=== PATIENT | female | born 1985 | race Caucasian/White ===

== ENCOUNTER 2017-05-21 10:07 | Emergency (ER) | payer BC, SELFPAY ==
[2017-05-21 10:30] VITALS: BP 149/90; PULSE 101; RESP 22; TEMP 36.8; O2SAT 98; BMI 29.0
--- NOTE | 2017-05-21 10:38 | HMH.EDUTC ---
[facility] [place]: Dental abscess Disposition: Home, Self-Care Condition on Discharge: Good Instructions: DI for Dental Pain Prescriptions: Amoxicillin/Potassium Clav [Augmentin 875-125 Tablet] 1 tab PO Q12H 10 Days #20 tab Ibuprofen [Ibuprofen 800mg Tab] 800 mg PO Q6HP PRN 10 Days #40 tab PRN Reason: Moderate Pain Lidocaine HCl [Lidocaine 2% viscous solution 15mL UDC] 15 ml MM Q4HP PRN 10 Days #60 udc PRN Reason: pain Referrals: Nigel Vargas MD [Primary Care Provider] - Time of Disposition: 10:45 Medical Decision Making - Medical Records Medical records reviewed: Yes: I reviewed the patient's medical records. Vital Signs: 05/21/17 10:30 Temperature 98.2 F Temperature Source Temporal Artery Scan Pulse Rate [Right Brachial] 101 H Respiratory Rate 22 Blood Pressure [Right Arm] 149/90 Blood Pressure Mean [Right Arm] 109 Blood Pressure Source [Right Arm] Automatic Cuff Blood Pressure Position [Right Arm] Sitting 02 Sat by Pulse Oximetry 98 Oxygen Delivery Method Room Air - Ronny Inquiry Pt receiving controlled substance: No [facility] [place] - General Stated complaint: DENTAL PAIN Time Seen by Provider: 05/21/17 10:38 Mode of Arrival: Ambulatory Source of Information: Patient Limitations: No Limitations Description of Symptoms (Recalled from Triage Doc. by RN): TOOTHACHE X2 DAYS HEENT Symptoms (Recalled from RN notes): Yes (TOOTHACHE) Resp Symptoms (Recalled from RN notes): No Skin Symptoms (Recalled from RN notes): No MS Symptoms (Recalled from RN notes): No Functional Status (Recalled from RN notes): N/A - History of Present Illness Provider Complaint: Pain in left lower jaw X 2 days, worse since 4 am. Has known dental caries and needs extensive dental work. No fever. No vomiting. Has had trouble finding dentist who accepts her insurance. Onset (ago): day(s) (2) Location: mouth Relieving factors: medication Exacerbating factors: none Associated symptoms: denies other symptoms Treatments prior to arrival: NSAID - Related Data Previous Rx's Medication Instructions Recorded Amoxicillin/Potassium Clav 1 tab PO Q12H 10 Days #20 tab 05/21/17 [Augmentin 875-125 Tablet] Ibuprofen [Ibuprofen 800mg Tab] 800 mg PO Q6HP PRN 10 Days #40 tab 05/21/17 Lidocaine HCl [Lidocaine 2% 15 ml MM Q4HP PRN 10 Days #60 udc 05/21/17 viscous solution 15mL UDC] Allergies Allergy/AdvReac Type Severity Reaction Status Date / Time ondansetron Allergy Unknown STATES Verified 05/21/17 10:30 [From ZOFRAN ( MAKES HER HYDROCHLORIDE)] SICK - Worker's Comp Is this a Worker's Comp case?: No [facility] History I have reviewed the patient's past medical history: Yes Medical History: Denies:: Cancer, Diabetes Mellitus Type 1, Diabetes Mellitus Type 2, MRSA Amputation: No Fractures: No - Social History Smoking Status: Current every day smoker Tobacco Type: cigarettes Alcohol Intake: never - Psychiatric History Expresses thoughts of harming self/others: None Suicide Plan Description: No Plan ROS Obtained: Yes All systems reviewed & no additional complaints - ENT Ears, Nose, Mouth, and Throat: Reports as per HPI, Reports dental pain Physical Exam - General General appearance: alert, in no apparent distress - Head Head exam: atraumatic, normocephalic, normal inspection - Eye Eye exam: Present: normal appearance, PERRL, EOMI - ENT ENT exam: Present: normal exam, normal oropharynx, mucous membranes moist, TM's normal bilaterally, normal external ear exam - Expanded ENT Exam Teeth exam: Present: dental caries, fractured tooth #, dental tenderness #, gingival swelling - Neck Neck exam: Present: normal inspection, full ROM, trachea midline. Absent: meningismus, lymphadenopathy - Chest Chest inspection: Present: normal inspection, symmetric chest wall rise. Absent: tenderness - Respiratory Respiratory exam: Present: normal lung sounds bilaterally. Absent: re
--- NOTE | 2017-05-21 10:41 | ED_ITS ---
[facility] [place] Disposition Clinical Impression: Dental abscess Disposition: Home, Self-Care Condition on Discharge: Good Instructions: DI for Dental Pain Prescriptions: Amoxicillin/Potassium Clav [Augmentin 875-125 Tablet] 1 tab PO Q12H 10 Days #20 tab Ibuprofen [Ibuprofen 800mg Tab] 800 mg PO Q6HP PRN 10 Days #40 tab PRN Reason: Moderate Pain Lidocaine HCl [Lidocaine 2% viscous solution 15mL UDC] 15 ml MM Q4HP PRN 10 Days #60 udc PRN Reason: pain Referrals: Nigel Vargas MD [Primary Care Provider] - Time of Disposition: 10:45 Medical Decision Making - Medical Records Medical records reviewed: Yes: I reviewed the patient's medical records. Vital Signs: 05/21/17 10:30 Temperature 98.2 F Temperature Source Temporal Artery Scan Pulse Rate [Right Brachial] 101 H Respiratory Rate 22 Blood Pressure [Right Arm] 149/90 Blood Pressure Mean [Right Arm] 109 Blood Pressure Source [Right Arm] Automatic Cuff Blood Pressure Position [Right Arm] Sitting 02 Sat by Pulse Oximetry 98 Oxygen Delivery Method Room Air - Ronny Inquiry Pt receiving controlled substance: No [facility] [place] HPI - General Stated complaint: DENTAL PAIN Time Seen by Provider: 05/21/17 10:38 Mode of Arrival: Ambulatory Source of Information: Patient Limitations: No Limitations Description of Symptoms (Recalled from Triage Doc. by RN): TOOTHACHE X2 DAYS HEENT Symptoms (Recalled from RN notes): Yes (TOOTHACHE) Resp Symptoms (Recalled from RN notes): No Skin Symptoms (Recalled from RN notes): No MS Symptoms (Recalled from RN notes): No Functional Status (Recalled from RN notes): N/A - History of Present Illness Provider Complaint: Pain in left lower jaw X 2 days, worse since 4 am. Has known dental caries and needs extensive dental work. No fever. No vomiting. Has had trouble finding dentist who accepts her insurance. Onset (ago): day(s) (2) Location: mouth Relieving factors: medication Exacerbating factors: none Associated symptoms: denies other symptoms Treatments prior to arrival: NSAID - Related Data Previous Rx's Medication Instructions Recorded Amoxicillin/Potassium Clav 1 tab PO Q12H 10 Days #20 tab 05/21/17 [Augmentin 875-125 Tablet] Ibuprofen [Ibuprofen 800mg Tab] 800 mg PO Q6HP PRN 10 Days #40 tab 05/21/17 Lidocaine HCl [Lidocaine 2% 15 ml MM Q4HP PRN 10 Days #60 udc 05/21/17 viscous solution 15mL UDC] Allergies Allergy/AdvReac Type Severity Reaction Status Date / Time ondansetron Allergy Unknown STATES Verified 05/21/17 10:30 [From ZOFRAN ( MAKES HER HYDROCHLORIDE)] SICK - Worker's Comp Is this a Worker's Comp case?: No [facility] History I have reviewed the patient's past medical history: Yes Medical History: Denies:: Cancer, Diabetes Mellitus Type 1, Diabetes Mellitus Type 2, MRSA Amputation: No Fractures: No - Social History Smoking Status: Current every day smoker Tobacco Type: cigarettes Alcohol Intake: never - Psychiatric History Expresses thoughts of harming self/others: None Suicide Plan Description: No Plan ROS Obtained: Yes All systems reviewed & no additional complaints - ENT Ears, Nose, Mouth, and Throat: Reports as per HPI, Reports dental pain Physical Exam - General General appearance: alert, in no apparent distress - Head Head ex
[2017-05-21 10:55] VITALS: BP 149/90; PULSE 101; RESP 22; TEMP 36.8; O2SAT 98
== END 2017-05-21 10:56 | disposition home or self-care (01) ==
PROVIDERS: Emergency Provider Physician Assistant; Family Provider Emergency Medicine; PCP Emergency Medicine
DX: K04.7 Periapical abscess without sinus (principal); K02.9 Dental caries, unspecified; F17.210 Nicotine dependence, cigarettes, uncomplicated; Z88.8 Allergy status to other drugs, medicaments and biological substances
CPT/HCPCS: 99202

== ENCOUNTER 2020-01-18 17:43 | Emergency (ER) | payer BC, SELFPAY ==
[2020-01-18 18:11] VITALS: BP 153/88; PULSE 59; RESP 18; TEMP 36.8; O2SAT 100; BMI 23.3
--- NOTE | 2020-01-18 19:07 | HMH.EDUTC ---
[facility] [place] Impression: Dental abscess, Pain, dental Disposition: Home, Self-Care Condition on Discharge: Good Instructions: Tooth Abscess, DI for Dental Pain Additional Instructions: You have to follow up with a dentist. Take the antibiotics and other medications as directed. Follow up with your primary care physician. GO TO THE ER FOR ANY WORSENING SYMPTOMS OR CONCERNS Prescriptions: Ibuprofen [Ibuprofen 600mg Tablet] 600 mg PO Q6HP PRN #30 tab PRN Reason: Mild Pain Transmission Status: Received by [facility] Amoxicillin/Potassium Clav [Augmentin 875-125 Tablet] 1 tab PO Q12H 10 Days #20 tab Transmission Status: Received by [facility] Referrals: Nigel Vargas MD [Primary Care Provider] - Time of Disposition: 19:11 Medical Decision Making - Medical Records Medical records reviewed: No: I reviewed the patient's medical records. - Ronny Inquiry Pt receiving controlled substance: No Vital Signs: 01/18/20 18:11 01/18/20 19:29 Temperature 98.2 F 98.2 F Temperature Source Oral Pulse Rate 59 L Pulse Rate [Right Brachial] 59 L Respiratory Rate 18 18 Blood Pressure 153/88 H Blood Pressure [Right Arm] 153/88 H Blood Pressure Mean [Right Arm] 109 Blood Pressure Source [Right Arm] Automatic Cuff Blood Pressure Position [Right Arm] Sitting 02 Sat by Pulse Oximetry 100 Oxygen Delivery Method Room Air Orders (Tests/Meds): ED MEDICATIONS Discontinued Medications Generic Name Dose Route Start Last Admin Trade Name Freq PRN Reason Stop Dose Admin Benzocaine/Butamben/Tetracaine HCl 1 gm 01/18/20 19:09 01/18/20 19:24 Tetracaine/Benzocaine/Butamben 56 Gm Bomoseen TP 01/18/20 19:10 1 gm ONCE ONE Administration Ceftriaxone Sodium 1 gm 01/18/20 19:07 01/18/20 19:24 Ceftriaxone 1gm Vial IM 01/18/20 19:08 1 gm ONCE ONE Administration Protocol Lidocaine HCl 0 ml 01/18/20 19:07 01/18/20 19:24 Lidocaine 1% 5ml Pf Vial IM 01/18/20 19:08 2.1 ml ONCE ONE Administration Lidocaine HCl 15 ml 01/18/20 19:09 01/18/20 19:24 Lidocaine 2% Viscous Smiley 15ml Udc PO 01/18/20 19:10 15 ml ONCE ONE Administration [facility] [place] - General Stated complaint: Dental pain Time Seen by Provider: 01/18/20 18:20 Mode of Arrival: Ambulatory Source of Information: Patient Limitations: No Limitations Description of Symptoms (Recalled from Triage Doc. by RN): PATIENT C/O TOOTH ABSCESS/SWELLING HEENT Symptoms (Recalled from RN notes): Yes Resp Symptoms (Recalled from RN notes): No Skin Symptoms (Recalled from RN notes): No MS Symptoms (Recalled from RN notes): No Functional Status (Recalled from RN notes): wnl - History of Present Illness Provider Complaint: She has multiple decayed teeth. She has been having pain and swelling of her lower from gums around the decayed teeth. - Related Data Home Medications Medication Instructions Recorded Confirmed buprenorphine 8 mg-naloxone 2 mg 1 tab SUBLINGUAL BID tab 03/13/18 01/18/20 sublingual tablet Previous Rx's Medication Instructions Recorded Amoxicillin/Potassium Clav 1 tab PO Q12H 10 Days #20 tab 01/18/20 [Augmentin 875-125 Tablet] Ibuprofen [Ibuprofen 600mg 600 mg PO Q6HP PRN #30 tab 01/18/20 Tablet] Allergies Allergy/AdvReac Type Severity Reaction Status Date / Time ondansetron Allergy Unknown STATES Verified 03/13/18 09:45 [From ZOFRAN ( MAKES HER HYDROCHLORIDE)] SICK - Worker's Comp Is this a Worker's Comp case?: No [facility] History - Hepatitis A Screen Drug use history?: No High risk sexual behaviors?: No History of sexually transmitted infection?: No Currently employed?: No Childcare worker?: No Do you have indoor plumbing?: Yes Do you have electricity?: Yes Attestation statement:: This patient has been screened for Hepatitis A risk factors. I have reviewed the patient's past medical history: Yes Medical History:
[2020-01-18 19:29] VITALS: BP 153/88; PULSE 59; RESP 18; TEMP 36.8; O2SAT 100
== END 2020-01-18 19:35 | disposition home or self-care (01) ==
PROVIDERS: Emergency Provider Nurse Practitioner Family; PCP Emergency Medicine
DX: K04.7 Periapical abscess without sinus (principal); F17.210 Nicotine dependence, cigarettes, uncomplicated
CPT/HCPCS: 96372; 99201

== ENCOUNTER 2020-05-15 16:34 | Emergency (ER) | payer BC, SELFPAY ==
[2020-05-15 17:00] VITALS: BP 140/97; PULSE 97; RESP 14; TEMP 36.3; O2SAT 98; BMI 26.1
--- NOTE | 2020-05-15 17:07 | HMH.EDUTC ---
[facility] [place] Disposition Clinical Impression: Exposure to COVID-19 virus Disposition: Home, Self-Care Condition on Discharge: Good Instructions: Preventing the Spread of Coronavirus Discharge Instructions Additional Instructions: You have been tested for COVID19. Please isolate yourself as if your test is positive until test results received. Referrals: Nigel Vargas MD [Primary Care Provider] - Time of Disposition: 17:09 Medical Decision Making - Ronny Inquiry Pt receiving controlled substance: No Orders (Tests/Meds): ORDERS Category Date Time Status Covid-19 Nasal PCR ([facility]) Routine Lab 05/15/20 16:41 Ordered [facility] [place] HPI - General Stated complaint: covid test Time Seen by Provider: 05/15/20 17:07 - History of Present Illness Provider Complaint: Cough, congestion, runny nose, sore throat, body aches X 5 days. Exposed to COVID 19 last week. No vomiting or diarrhea. Onset (ago): day(s) (5) Relieving factors: none Exacerbating factors: none Associated symptoms: denies other symptoms Treatments prior to arrival: none - Related Data Home Medications Medication Instructions Recorded Confirmed buprenorphine 8 mg-naloxone 2 mg 1 tab SUBLINGUAL BID tab 03/13/18 01/18/20 sublingual tablet Previous Rx's Medication Instructions Recorded Amoxicillin/Potassium Clav 1 tab PO Q12H 10 Days #20 tab 01/18/20 [Augmentin 875-125 Tablet] Ibuprofen [Ibuprofen 600mg 600 mg PO Q6HP PRN #30 tab 01/18/20 Tablet] Allergies Allergy/AdvReac Type Severity Reaction Status Date / Time ondansetron Allergy Unknown STATES Verified 03/13/18 09:45 [From ZOFRAN ( MAKES HER HYDROCHLORIDE)] SICK [facility] History - Hepatitis A Screen Attestation statement:: This patient has been screened for Hepatitis A risk factors. I have reviewed the patient's past medical history: Yes Medical History: Denies:: Cancer, Diabetes Mellitus Type 1, Diabetes Mellitus Type 2, MRSA Other Surgeries: Yes: Hysterectomy-Partial Amputation: No Fractures: No - Social History Smoking Status: Current every day smoker Tobacco Type: cigarettes # Packs/Day (cigarettes): 1 Alcohol Intake: never Substance Use Type: former substance user Occupational Status: other Family Hx:: Heart Attack, Stroke ROS Obtained: Yes All systems reviewed & no additional complaints - Constitutional Constitutional: Reports body ache, Reports chills, Reports fatigue, Reports malaise - ENT Ears, Nose, Mouth, and Throat: Reports nasal discharge, Reports sore throat - Respiratory Respiratory: Reports cough Physical Exam - General General appearance: alert, in no apparent distress - Head Head exam: normocephalic - Eye Eye exam: Present: PERRL - ENT ENT exam: Present: normal oropharynx - Chest Chest inspection: Present: normal inspection - Respiratory Respiratory exam: Present: normal lung sounds bilaterally - Cardiovascular Cardiovascular exam: Present: regular rate, normal rhythm - Neurological Exam Neurological exam: Present: alert, oriented X3 - Psychiatric Psychiatric exam: Present: normal affect, normal mood - Skin Skin exam: Present: warm, dry
[2020-05-15 17:26] VITALS: BP 140/97; PULSE 97; RESP 14; TEMP 36.3; O2SAT 98
--- NOTE | 2020-05-16 09:46 | PC.NURSE ---
ATTEMPTED TO CALL PT ABOUT COVID TEST RESULTS, NO ANSWER. WILL TRY AGAIN LATER
--- NOTE | 2020-05-16 09:55 | PC.NURSE ---
PT NOTIFIED OF POSITIVE COVID RESULTS
== END 2020-05-15 17:30 | disposition home or self-care (01) ==
PROVIDERS: Emergency Provider Physician Assistant; PCP Emergency Medicine
DX: U07.1 COVID-19 (principal); F17.210 Nicotine dependence, cigarettes, uncomplicated
CPT/HCPCS: 99202; G0463; U0003

== ENCOUNTER → 2021-04-21 13:56 | Outpatient (CLI) | payer BC, SELFPAY | PROVIDERS: Visit Provider Nurse Practitioner | DX: Z20.822 Contact with and (suspected) exposure to COVID-19 (principal) | CPT/HCPCS: C9803; U0003; U0005 ==

== ENCOUNTER → 2021-05-06 16:48 | Outpatient (CLI) | payer BC, SELFPAY | PROVIDERS: Visit Provider Nurse Practitioner | DX: Z20.822 Contact with and (suspected) exposure to COVID-19 (principal) | CPT/HCPCS: C9803; U0003; U0005 ==

== ENCOUNTER 2021-08-17 15:03 | Emergency (ER) | payer BC, SELFPAY ==
[2021-08-17 15:12] VITALS: BP 114/80; PULSE 107; RESP 18; O2SAT 99; BMI 20.3
--- NOTE | 2021-08-17 15:20 | HMH.EDGENADL ---
ED Disposition Clinical Impression: Bacteriuria Low back pain Qualifiers: Chronicity: acute Back pain laterality: bilateral Sciatica presence: without sciatica Qualified Code(s): M54.50 - Low back pain, unspecified Disposition: Home, Self-Care Condition on Discharge: Good Instructions: DI for Low Back Pain, DI for Urinary Tract Infection (UTI) Additional Instructions: follow up PCP as needed, return here for worse Prescriptions: Sulfamethoxazole/Trimethoprim [Bactrim DS tablet] 1 each PO BID #14 tab Transmission Status: Received by [facility] Cyclobenzaprine HCl [Cyclobenzaprine 5mg Tab*] 5 mg PO TIDP PRN #15 tab PRN Reason: Moderate To Severe Pain Transmission Status: Received by [facility] Referrals: Nigel Vargas MD [Primary Care Provider] - - Critical Care Critical Care Time: No Attestation: On , the high probability of a clinically significant, sudden or life threatening deterioration of the following system(s) required my full and direct attention, intervention and personal management. The time I documented below is in addition to time spent performing reported procedures but includes the following listed in this critical care notation. Medical Decision Making - Medical Records Medical records reviewed: Yes: I reviewed the patient's medical records. - Ronny Inquiry Pt receiving controlled substance: No Vital Signs: 08/17/21 15:12 08/17/21 16:30 Temperature 98.2 F Pulse Rate 74 Pulse Rate [Radial] 107 H Respiratory Rate 18 20 Blood Pressure 117/82 Blood Pressure [Right Arm] 114/80 Blood Pressure Mean [Right Arm] 91 02 Sat by Pulse Oximetry 99 - Lab Data Lab Results 08/17/21 15:20: Urine Color Yellow, Urine Appearance Cloudy, Urine pH 5.0, Ur Specific Honeydew >= 1.030, Urine Protein Trace, Urine Glucose (UA) Negative, Urine Ketones Trace, Urine Blood Negative, Urine Nitrate Negative, Urine Bilirubin 1+ A, Urine Urobilinogen 1.0, Ur Leukocyte Esterase Negative, Urine RBC None, Urine WBC None, Ur Squamous Epith Cells 5-10, Urine Bacteria 1+, Urine Mucus 3+ 08/17/21 15:20: WBC 7.2, RBC 5.07, Hgb 15.8, Hct 47.5 H, MCV 93.7, MCH 31.2, MCHC 33.3, RDW 13.2, Plt Count 267, MPV 8.8, Neut % (Auto) 88.6 H, Lymph % (Auto) 7.4 L, [place] % (Auto) 2.5, Eos % (Auto) 0.6, Baso % (Auto) 0.9, Neut # (Auto) 6.4, Lymph # (Auto) 0.5 L, [place] # (Auto) 0.2, Eos # (Auto) 0.0, Baso # (Auto) 0.1, Total Counted 100, Neutrophils % (Manual) 90 H, Band Neutrophils % 1.0, Lymphocytes % (Manual) 7 L, Monocytes % (Manual) 2, Platelet Estimate Normal, RBC Morphology Normal 08/17/21 15:20: Sodium 135 L, Potassium 4.4, Chloride 104, Carbon Dioxide 23, Anion Gap 12.4, BUN 14, Creatinine 0.70, Estimated Creat Clear 104, Estimated GFR 95, Est GFR ( Amer) 115, Glucose 125 H, Calcium 9.2, Total Bilirubin 0.7, AST 35, ALT 27, Alkaline Phosphatase 68, Total Protein 7.9, Albumin 4.6, Globulin 3.3 H, Albumin/Globulin Ratio 1.4, Amylase 61, Lipase 50 08/17/21 15:20: Serum HCG, Qual Negative Result diagrams: 08/17/21 15:20 08/17/21 15:20 Orders (Tests/Meds): ED MEDICATIONS Discontinued Medications Generic Name Dose Route Start Last Admin Trade Name Freq PRN Reason Stop Dose Admin Sodium Chloride 1,000 mls @ 999 mls/hr 08/17/21 15:30 08/17/21 15:33 Sod Chlor 0.9% 1000ml Bag IV 08/17/21 16:30 999 mls/hr .Q1H1M DARIUS Administration Ketorolac Tromethamine 15 mg 08/17/21 15:19 08/17/21 15:33 Ketorolac 30mg/Ml Vial IV 08/17/21 15:20 15 mg ONCE ONE Administration - Reevaluation(s) Time: 16:21 (reeval, vss, appears well, feels better, ok with plan to rx and f/u prn) General Adult HPI - General Chief complaint: Abdominal Pain Stated complaint: back pain, nausea, unable to urinate Time Seen by Provider: 08/17/21 15:03 Mode of Arrival: Ambulatory Limitations: No Limitations Description of Symptoms (Recalled from ER Triage Doc. by RN): Pt c/o edel flank pain and difficulty urinat
[2021-08-17 15:34] LABS: Microscopic, Urine URINE MICROSCOPIC (MICROSCOPIC)
[2021-08-17 15:40] LABS: Basophils # 0.1 K/mm3 (0-0.2); Basophils % 0.9 % (0.1-2.0); Chloride 104 mmol/L (98-107); Eosinophils % 0.6 % (0.1-12.0); Hematocrit 47.5 % (37.0-47.0); Hemoglobin 15.8 g/dL (12.2-16.2); Lymphocytes # 0.5 K/mm3 (0.7-4.5); Lymphocytes % 7.4 % (10-50); Mean Corpuscular HGB Conc 33.3 g/dL (31.8-35.4); Mean Corpuscular Hemoglobin 31.2 pg (27.0-31.2); Mean Corpuscular Volume 93.7 fl (81-99); Mean Platelet Volume 8.8 fl (7.4-10.4); Monocytes # 0.2 K/mm3 (0.1-1.0); Monocytes % 2.5 % (1.7-9.3); Neutrophils # 6.4 K/mm3 (1.8-7.8); Neutrophils % 88.6 % (37.0-80.0); Platelet Count 267 K/mm3 (142-424); Potassium 4.4 mmoL/L (3.5-5.1); Red Blood Count 5.07 M/mm3 (4.20-5.40); Red Cell Distribution Width 13.2 % (11.5-17.5); Sodium 135 mmol/L (136-145); White Blood Count 7.2 K/mm3 (4.8-10.8)
[2021-08-17 15:42] LABS: Amylase 61 U/L (30-110)
[2021-08-17 15:43] LABS: Alanine Aminotransferase 27 U/L (12-78); Albumin Level 4.6 g/dl (3.5-5.0); Albumin/Globulin Ratio 1.4 (1.1-1.8); Alkaline Phosphatase 68 U/L (38-126); Anion Gap 12.4 mEq/L (5-15); Appearance,Urine CLOUDY (Clear); Aspartate Amino Transferase 35 U/L (14-36); Bilirubin,Total 0.7 mg/dl (0.2-1.3); Blood Urea Nitrogen 14 mg/dl (7-17); Blood, Urine Negative (Negative); Calcium 9.2 mg/dl (8.4-10.2); Carbon Dioxide 23 mmol/L (22.0-30.0); Color,Urine YELLOW (Yellow); Creatinine Clearance Estimated 104 mL/min (50-200); Estimated Glomerular Filt Rate 95 ml/min (>60); GFR (African American) 115 ML/MIN (>60); Globulin 3.3 g/dL (1.3-3.2); Glucose 125 mg/dl (74-100); Glucose,Urine (UA) Negative (Negative); Ketones,Urine TRACE (Negative); Leukocyte Esterase,Urine Negative (Negative); Lipase 50 U/L (23-300); Nitrate,Urine Negative (Negative); Protein,Urine TRACE (Negative); Specific Gravity, Urine >= 1.030 (1.005-1.030); Total Protein,Serum 7.9 g/dl (6.3-8.2)
[2021-08-17 15:48] LABS: MANUAL DIFFERENTIAL MANUAL DIFFERENTIAL (MANUAL DIFF)
[2021-08-17 15:57] LABS: HCG Qualitative, Serum Negative (Negative)
[2021-08-17 16:11] LABS: Bilirubin,Urine 1+ (Negative)
[2021-08-17 16:12] LABS: Bacteria,Urine 1+ /lpf; Mucus,Urine 3+ /lpf
[2021-08-17 16:30] VITALS: BP 117/82; PULSE 74; RESP 20; TEMP 36.8; O2SAT 100
[2021-08-17 16:41] LABS: Lymphocytes % 7 % (10-50); Monocytes % 2 % (2-9); Neutrophils % 90 % (42-76); Platelet Estimate Normal; RBC Morphology Normal; Total Cells Counted 100
== END 2021-08-17 16:30 | disposition home or self-care (01) ==
PROVIDERS: Emergency Provider Emergency Medicine; PCP Emergency Medicine
DX: R82.71 Bacteriuria
CPT/HCPCS: 80053; 81001; 82150; 83690; 84703; 85007; 85025; 96365; 96375; 99284

== ENCOUNTER 2021-09-13 04:58 | Emergency (ER) | payer BC, SELFPAY ==
[2021-09-13] VITALS (13 sets, daily range): BP systolic 103–173; BP diastolic 45–99; PULSE 60–89; RESP 16–18; TEMP 36.8; O2SAT 96–100; BMI 26.6
--- NOTE | 2021-09-13 05:09 | CT_ITS ---
PROCEDURE INFORMATION: Exam: CT Abdomen And Pelvis Without Contrast Exam date and time: 09/13/2021 5:23 AM Age: 36 years old Clinical indication: Abdominal pain; Flank; Right; Prior surgery; Surgery date: 6+ months; Surgery type: RT ovary removed, tubal ligation; Additional info: Abd pain RT flank TECHNIQUE: Imaging protocol: Computed tomography of the abdomen and pelvis without contrast. Radiation optimization: All CT scans at this facility use at least one of these dose optimization techniques: automated exposure control; mA and/or kV adjustment per patient size (includes targeted exams where dose is matched to clinical indication); or iterative reconstruction. COMPARISON: [id number]/[id number] CT ABD PELVIS W/O CONTRAST 03/23/2016 7:09 PM FINDINGS: Lungs: [id number] emphysematous changes in the lung bases. Moderate sized bulla in the RML. Liver: Small calcified hepatic granuloma. Gallbladder and bile ducts: Cholelithiasis with mild nonspecific gallbladder distention. Pancreas: Normal. No ductal dilation. Spleen: Calcified splenic granulomata. Adrenal glands: Normal. No mass. Kidneys and ureters: Punctate nonobstructive calculus in the right kidney. No hydronephrosis. Stomach and bowel: Mild nonspecific fecalization of the terminal ileum. No evidence of obstruction. Appendix: No evidence of appendicitis. Intraperitoneal space: Trace free pelvic fluid, which is most often physiologic in this age group. Vasculature: Unremarkable. No abdominal aortic aneurysm. Lymph nodes: Unremarkable. No enlarged lymph nodes. Urinary bladder: Unremarkable as visualized. Reproductive: Unremarkable as visualized. Bones/joints: Unremarkable. No acute fracture. Soft tissues: Tiny fat containing umbilical hernia. IMPRESSION: 1. Cholelithiasis with mild nonspecific gallbladder distention. 2. Punctate nonobstructive calculus in the right kidney. No hydronephrosis. 3. Other findings as detailed in the body of the report.
[2021-09-13 05:14] LABS: Microscopic, Urine URINE MICROSCOPIC (MICROSCOPIC)
[2021-09-13 05:16] LABS: Appearance,Urine CLEAR (Clear); Bilirubin,Urine Negative (Negative); Blood, Urine Negative (Negative); Color,Urine YELLOW (Yellow); Glucose,Urine (UA) Negative (Negative); Ketones,Urine Negative (Negative); Leukocyte Esterase,Urine Negative (Negative); Nitrate,Urine Negative (Negative); Protein,Urine Negative (Negative); Specific Gravity, Urine >= 1.030 (1.005-1.030); Urobilinogen,Urine 0.2 EU/dl (0.2)
[2021-09-13 05:18] LABS: Urine Pregnancy, HCG Qual. Negative (Negative)
[2021-09-13 05:47] LABS: Basophils # 0.2 K/mm3 (0-0.2); Basophils % 2.4 % (0.1-2.0); Eosinophils # 0.2 K/mm3 (0.0-0.4); Hematocrit 43.9 % (37.0-47.0); Hemoglobin 14.6 g/dL (12.2-16.2); Lymphocytes # 2.4 K/mm3 (0.7-4.5); Lymphocytes % 39.3 % (10-50); Mean Corpuscular HGB Conc 33.3 g/dL (31.8-35.4); Mean Corpuscular Volume 93.2 fl (81-99); Mean Platelet Volume 9.2 fl (7.4-10.4); Monocytes # 0.3 K/mm3 (0.1-1.0); Monocytes % 5.3 % (1.7-9.3); Neutrophils % 49.9 % (37.0-80.0); Platelet Count 252 K/mm3 (142-424); Red Blood Count 4.71 M/mm3 (4.20-5.40); Red Cell Distribution Width 13.4 % (11.5-17.5)
[2021-09-13 05:59] LABS: Alanine Aminotransferase 32 U/L (12-78); Albumin Level 4.4 g/dl (3.5-5.0); Albumin/Globulin Ratio 1.3 (1.1-1.8); Alkaline Phosphatase 71 U/L (38-126); Amylase 62 U/L (30-110); Anion Gap 9.8 mEq/L (5-15); Aspartate Amino Transferase 34 U/L (14-36); Blood Urea Nitrogen 12 mg/dl (7-17); Calcium 9.1 mg/dl (8.4-10.2); Carbon Dioxide 26 mmol/L (22.0-30.0); Chloride 105 mmol/L (98-107); Creatinine Clearance Estimated 150 mL/min (50-200); Estimated Glomerular Filt Rate 114 ml/min (>60); GFR (African American) 138 ML/MIN (>60); Globulin 3.4 g/dL (1.3-3.2); Glucose 102 mg/dl (74-100); Lipase 85 U/L (23-300); Potassium 3.8 mmoL/L (3.5-5.1); Sodium 137 mmol/L (136-145); Total Protein,Serum 7.8 g/dl (6.3-8.2)
[2021-09-13 06:04] LABS: Bilirubin,Total < 0.1 mg/dl (0.2-1.3); C-Reactive Protein 2.2 mg/L (0-4)
[2021-09-13 06:14] LABS: Erythrocyte Sedimentation Rate 12 mm/hr (0-20)
[2021-09-13 06:18] LABS: Procalcitonin 0.035 ng/mL (0.0-2.0)
--- NOTE | 2021-09-13 06:56 | HMH.EDNVD ---
ED Disposition Clinical Impression: Cholelithiasis Qualifiers: Cholelithiasis location: gallbladder Cholecystitis presence: with cholecystitis Cholecystitis acuity: acute Biliary obstruction: without biliary obstruction Qualified Code(s): K80.00 - Calculus of gallbladder with acute cholecystitis without obstruction Disposition: Admitted as Observation Condition on Discharge: Fair - Critical Care Critical Care Time: No Attestation: On 09/13/21, the high probability of a clinically significant, sudden or life threatening deterioration of the following system(s) required my full and direct attention, intervention and personal management. The time I documented below is in addition to time spent performing reported procedures but includes the following listed in this critical care notation. Medical Decision Making - Medical Records Medical records reviewed: Yes: I reviewed the patient's medical records. - Ronny Inquiry Pt receiving controlled substance: No Vital Signs: 09/13/21 04:59 Temperature 98.2 F Temperature Source Oral Pulse Rate [Apical] 89 Respiratory Rate 18 Blood Pressure [Right Arm] 173/99 H Blood Pressure Mean [Right Arm] 123 Blood Pressure Source [Right Arm] Automatic Cuff Blood Pressure Position [Right Arm] Sitting 02 Sat by Pulse Oximetry 99 Oxygen Delivery Method Room Air - Lab Data Lab results reviewed: Yes: I reviewed the patient's lab results. Lab Results 09/13/21 05:05: Urine Color Yellow, Urine Appearance Clear, Urine pH 6.0, Ur Specific [place] >= 1.030, Urine Protein Negative, Urine Glucose (UA) Negative, Urine Ketones Negative, Urine Blood Negative, Urine Nitrate Negative, Urine Bilirubin Negative, Urine Urobilinogen 0.2, Ur Leukocyte Esterase Negative, Ur Squamous Epith Cells 5-10 09/13/21 05:05: Urine HCG, Qual Negative 09/13/21 05:19: WBC 6.0, RBC 4.71, Hgb 14.6, Hct 43.9, MCV 93.2, MCH 31.0, MCHC 33.3, RDW 13.4, Plt Count 252, MPV 9.2, Neut % (Auto) 49.9, Lymph % (Auto) 39.3, [place] % (Auto) 5.3, Eos % (Auto) 3.0, Baso % (Auto) 2.4 H, Neut # (Auto) 3.0, Lymph # (Auto) 2.4, [place] # (Auto) 0.3, Eos # (Auto) 0.2, Baso # (Auto) 0.2 09/13/21 05:19: Amylase 62 09/13/21 05:19: Sodium 137, Potassium 3.8, Chloride 105, Carbon Dioxide 26, Anion Gap 9.8, BUN 12, Creatinine 0.60, Estimated Creat Clear 150, Estimated GFR 114, Est GFR ( Amer) 138, Glucose 102 H, Calcium 9.1, Total Bilirubin < 0.1 L, AST 34, ALT 32, Alkaline Phosphatase 71, C-Reactive Protein 2.2, Total Protein 7.8, Albumin 4.4, Globulin 3.4 H, Albumin/Globulin Ratio 1.3, Lipase 85, Procalcitonin 0.035 09/13/21 05:19: ESR 12 Result diagrams: 09/13/21 05:19 09/13/21 05:19 Orders (Tests/Meds): ED MEDICATIONS Discontinued Medications Generic Name Dose Route Start Last Admin Trade Name Freq PRN Reason Stop Dose Admin Hydromorphone HCl 1 mg 09/13/21 07:04 09/13/21 07:06 Hydromorphone 2mg/Ml Syringe IV 09/13/21 07:05 1 mg ONCE ONE Administration Sodium Chloride 1,000 mls @ 999 mls/hr 09/13/21 05:15 09/13/21 05:13 Sod Chlor 0.9% 1000ml Bag IV 09/13/21 06:15 999 mls/hr .Q1H1M DARIUS Administration Ketorolac Tromethamine 30 mg 09/13/21 05:10 09/13/21 05:13 Ketorolac 30mg/Ml Vial IV 09/13/21 05:11 30 mg ONCE ONE Administration Promethazine HCl 25 mg 09/13/21 07:05 09/13/21 07:07 Promethazine Hcl 25mg/Ml 1ml Vial IV 09/13/21 07:06 25 mg ONCE ONE Administration Sodium Chloride 25 ml 09/13/21 07:05 09/13/21 07:06 Sodium Chloride 0.9% 25ml Bag IV 09/13/21 07:06 25 ml ONCE ONE Administration ORDERS Category Date Time Status US gallbladder Stat Exams 09/13/21 07:12 Taken - CT Data CT Scan: Abdomen, Pelvis Time Received: 07:[address] Reviewed: Yes: I have viewed the radiologist's interpretation Preliminary Findings: Abnormal (see report ) Medical Decision Narrative: rt sided abd pain with tender rt abd and abn ct - showing gb disease and abn u/s with intracat
--- NOTE | 2021-09-13 07:12 | US_ITS ---
FINAL REPORT CLINICAL HISTORY: abdominal pain; back pain; nausea FINDINGS: Sonographic images of the right upper quadrant were obtained. The pancreas is partially obscured.The liver has an unremarkable appearance. There are multiple gallstones within the gallbladder. There is mild gallbladder wall thickening. There is no evidence of biliary ductal dilatation.The common duct measures 5 mm. Limited images of the right kidney are unremarkable. IMPRESSION: Multiple gallstones with mild gallbladder wall thickening, cholecystitis not excluded. If indicated, nuclear medicine hepatic biliary scan could be helpful. Reviewed, Interpreted and Dictated by Yohannes Torre III, MD Transcribed by Ami Rose Authenticated and [facility]
--- NOTE | 2021-09-13 07:36 | PC.NURSE ---
Pt resting in bed at this time.
--- NOTE | 2021-09-13 07:45 | PC.NURSE ---
Pt to rad for ultrasound
--- NOTE | 2021-09-13 08:12 | PC.NURSE ---
Pt returned to room
[2021-09-13 12:31] LABS: Coronavirus 19, PCR Not Detected (NotDetected); Influenza A, PCR Not Detected (NotDetected); Influenza B, PCR Not Detected (NotDetected)
--- NOTE | 2021-09-13 13:31 | HMH.HP ---
*Admission Date: 09/13/21 *Chief complaint: abd pain *History of present illness: this patient presented to the ed with progressive rt upper abd pain to back and was noted to have abn ct of abd and pelvis and abn gb u/s and was requiring pv pain meds and was still in pain and was admitted for treatment and surg eval [facility] History I have reviewed the patient's past medical history: Yes Medical History: Denies:: Cancer, Diabetes Mellitus Type 1, Diabetes Mellitus Type 2, MRSA *Have you ever received a pneumonia vaccine?: No *Have you received a flu vaccine this season?: No Other Surgeries: Yes: Hysterectomy-Partial Amputation: No Fractures: No - *Social History Smoking Status: Current every day smoker Tobacco Type: cigarettes # Packs/Day (cigarettes): 1 Alcohol Intake: never Substance Use Type: former substance user *Occupational Status:: other *Travel in the last 8 weeks: None Family Hx:: Heart Attack, Stroke Review of Systems - Review of Systems Review of systems:: pertinent systems reviewed and negative unless documented below - Constitutional Denies fever(s) - Eyes Denies change in vision - ENT Denies sore throat - *Cardiovascular Denies chest pain at rest - *Respiratory Denies cough - *Gastrointestinal Reports abdominal pain, Reports nausea, Denies vomiting - *Genitourinary Denies difficulty urinating - *Musculoskeletal Denies joint pain, Denies joint swelling - Integumentary/Breasts Denies rash - *Neurologic Denies localized weakness, Denies seizure-like activity - Psychiatric Denies paranoia Meds Home Medications Medication Instructions Recorded Confirmed Type No Known Home Medications 09/13/21 09/13/21 History Allergies Allergy/AdvReac Type Severity Reaction Status Date / Time ondansetron Allergy Unknown STATES Verified 03/13/18 09:45 [From ZOFRAN ( MAKES HER HYDROCHLORIDE)] SICK Exam Vital signs and Labs for Last 24 Hours: Temp Pulse Resp BP Pulse Ox 98.2 F 61 18 108/60 L 98 09/13/21 04:59 09/13/21 10:01 09/13/21 04:59 09/13/21 10:01 09/13/21 10:01 Laboratory Results - last 24 hr 09/13/21 05:05: Urine Color Yellow, Urine Appearance Clear, Urine pH 6.0, Ur Specific [place] >= 1.030, Urine Protein Negative, Urine Glucose (UA) Negative, Urine Ketones Negative, Urine Blood Negative, Urine Nitrate Negative, Urine Bilirubin Negative, Urine Urobilinogen 0.2, Ur Leukocyte Esterase Negative, Ur Squamous Epith Cells 5-10 09/13/21 05:05: Urine HCG, Qual Negative 09/13/21 05:19: WBC 6.0, RBC 4.71, Hgb 14.6, Hct 43.9, MCV 93.2, MCH 31.0, MCHC 33.3, RDW 13.4, Plt Count 252, MPV 9.2, Neut % (Auto) 49.9, Lymph % (Auto) 39.3, [place] % (Auto) 5.3, Eos % (Auto) 3.0, Baso % (Auto) 2.4 H, Neut # (Auto) 3.0, Lymph # (Auto) 2.4, [place] # (Auto) 0.3, Eos # (Auto) 0.2, Baso # (Auto) 0.2 09/13/21 05:19: Amylase 62 09/13/21 05:19: Sodium 137, Potassium 3.8, Chloride 105, Carbon Dioxide 26, Anion Gap 9.8, BUN 12, Creatinine 0.60, Estimated Creat Clear 150, Estimated GFR 114, Est GFR ( Amer) 138, Glucose 102 H, Calcium 9.1, Total Bilirubin < 0.1 L, AST 34, ALT 32, Alkaline Phosphatase 71, C-Reactive Protein 2.2, Total Protein 7.8, Albumin 4.4, Globulin 3.4 H, Albumin/Globulin Ratio 1.3, Lipase 85, Procalcitonin 0.035 09/13/21 05:19: ESR 12 09/13/21 12:25: SARS-CoV-2 (PCR) Not detected, Influenza A Untype (PCR) Not detected, Influenza Type B (PCR) Not detected I & O for Last 24 hours: Intake & Output 09/11/21 09/12/21 09/13/21 09/14/21 11:59 11:59 11:59 11:59 Weight 160 lb - Constitutional no acute distress, cooperative - *Routine HEENT Exam Head: Present: normocephalic Eye: Present: EOMI, PERRL. Absent: conjunctival icterus ENT: Present: mucous membranes dry - *Routine Neck Exam Absent: JVD - *Routine Respiratory Exam Present: CTA bilaterally - *Routine Cardiovascular Exam Present: RRR. Absent: murmur - *Routine Abdominal Exam Present
--- NOTE | 2021-09-13 14:52 | PC.NURSE ---
pt left ER ama
--- NOTE | 2021-09-13 15:13 | PC.NURSE ---
no bed available for pt upstairs, pt states that she does not want to wait until she has a bed upstairs. Pt educated on home care for the gallbladder and if symptoms get worse to return to the ER pt verbalized understanding
== END 2021-09-13 15:19 | disposition home or self-care (01) ==
LOC: ER 05:14 → 2ND 08:54
PROVIDERS: Emergency Provider Emergency Medicine; PCP Emergency Medicine
DX: K80.00 Calculus of gallbladder with acute cholecystitis without obstruction (principal); M54.9 Dorsalgia, unspecified; R10.31 Right lower quadrant pain; R11.0 Nausea; F17.210 Nicotine dependence, cigarettes, uncomplicated; Z20.822 Contact with and (suspected) exposure to COVID-19; Z88.8 Allergy status to other drugs, medicaments and biological substances; Z82.49 Family history of ischemic heart disease and other diseases of the circulatory system
CPT/HCPCS: 74176; 76705; 80053; 81001; 81025; 82150; 83690; 84145; 85025; 85651; 86140; 96361; 96374; 96375; 96376; 99285; C9803; U0003; U0005

== ENCOUNTER → 2021-09-21 08:36 | Outpatient (CLI) | payer BC, SELFPAY | PROVIDERS: PCP Emergency Medicine; Visit Provider Surgery | DX: Z01.812 Encounter for preprocedural laboratory examination (principal); Z20.822 Contact with and (suspected) exposure to COVID-19; K80.10 Calculus of gallbladder with chronic cholecystitis without obstruction | CPT/HCPCS: C9803; U0003; U0005 ==

== ENCOUNTER → 2021-09-23 10:23 | Day surgery (SDC) | payer BC, SELFPAY ==
[2021-09-22 14:14] VITALS: BMI 27.1
--- NOTE | 2021-09-23 11:30 | SUR.PREOP ---
PROCEDURE RESCHEDULED PER DR HAYWOOD. PT IN AGREEMENT WITH RESCHEDULING DUE TO SURGERY BEING DELAYED.
== END ==
PROVIDERS: PCP Emergency Medicine; Visit Provider Surgery
PROC: 0FT44ZZ Resection of Gallbladder, Percutaneous Endoscopic Approach (ICD-10-PCS; CPT 47562; principal; 2021-09-23 12:00)
DX: K80.10 Calculus of gallbladder with chronic cholecystitis without obstruction (principal)

== ENCOUNTER → 2021-09-30 11:43 | Outpatient (CLI) | payer BC, SELFPAY | PROVIDERS: PCP Emergency Medicine; Visit Provider Surgery | DX: Z01.812 Encounter for preprocedural laboratory examination (principal); Z20.822 Contact with and (suspected) exposure to COVID-19; K80.10 Calculus of gallbladder with chronic cholecystitis without obstruction | CPT/HCPCS: C9803; U0003; U0005 ==

== ENCOUNTER 2021-10-01 08:39 | Day surgery (SDC) | payer BC, SELFPAY ==
[2021-09-29 11:26] VITALS: BMI 27.4
[2021-10-01] VITALS (11 sets, daily range): BP systolic 98–148; BP diastolic 55–90; PULSE 63–80; RESP 16–18; TEMP 36.3–37.5; O2SAT 93–100
[2021-10-01 10:03] LABS: Urine Pregnancy, HCG Qual. Negative (Negative)
--- NOTE | 2021-10-01 10:17 | HMH.ANESCL ---
[facility] Anesthesia Checklist - Patient Identification Patient Identification: Arm Band - Structural Data Admitted From: Home Planned Operative Procedure/s: Lap. cholecystectomy Consent for Planned Operative Procedure(s) Verified: Yes - NPO Status Verified Time NPO: 00:00 - Additional verifications Anesthesia Reactions: No Hx Blood Transfusions: No Blood Transfusion Reaction: No - Airway Assessment C-Spine Mobility Assessed: Yes Dentition: Poor Dentition - Neurological Assessment Level of Consciousness: Awake Hx Seizures: No Numbness or tingling in extremities: No - Anesthesia Plan Anesthesia Risk discussed: Yes Anesthesia Plan: Verified ASA Class: I Anesthesia Type: General [facility] History I have reviewed the patient's past medical history: Yes Medical History: Denies:: Cancer, Diabetes Mellitus Type 1, Diabetes Mellitus Type 2, Internal Pacemaker, MRSA, Seizures *Have you ever received a pneumonia vaccine?: No *Have you received a flu vaccine this season?: No Other Medical History: Denies: Blood Transfusion Reaction Anesthesia experience/problems:: None Laterality Cases: Right: Lumpectomy Other Surgeries: Yes: Hysterectomy-Partial. No: Pacemaker Amputation: No Fractures: No - *Social History Last grade of school completed: High school graduate Smoking Status: Current every day smoker Tobacco Type: cigarettes # Packs/Day (cigarettes): 1 Alcohol Intake: never Substance Use Type: former substance user, painkillers, methamphetamine, prescription drug, other *Occupational Status:: unemployed Housing: house Household Members: family *Travel in the last 8 weeks: None Family Hx:: Heart Attack, Stroke
--- NOTE | 2021-10-01 12:03 | HMH.OPNOTE ---
Date of procedure: 10/01/21 Pre-op Diagnosis:: Chronic calculus cholecystitis Post-op Diagnosis:: Same Procedure performed:: Laparoscopic cholecystectomy Surgeon:: Sebastian Duran MD Anesthesia: GETShant Estimated blood loss (mL): 25 Operative findings:: Inflammatory lesions between gallbladder and liver margin Operative note:: After informed consent was obtained, the patient was taken to the operating room and placed in the supine position. General anesthesia was induced and the abdomen was prepped and draped in a sterile fashion. After infiltration with local anesthetic an infraumbilical incision was made. A Veress needle was placed in position. The abdomen was insufflated. A 5 mm optical trocar was placed in position. Under direct visualization, a 12 mm trocar was placed in the subxiphoid position and 2 additional 5 mm trocars were placed in the right upper quadrant. The gallbladder was elevated up and over the liver margin. The tissue around the cystic duct was carefully dissected. 3 clips were placed proximally and the duct was transected with harmonic antonietta. Harmonic antonietta were then utilized to dissect the gallbladder away from the liver margin with careful attention to the control of the cystic artery. The gallbladder was placed in a retrieval bag and removed through the subxiphoid trocar site. The right upper quadrant was thoroughly irrigated. No active bleeding or bile leak was noted. Fascia at the subxiphoid trocar site was reapproximated utilizing 0 Ethibond. The remaining trocars were removed. All wounds were irrigated and skin was closed with 4-0 Monocryl in a subcuticular fashion. Steri-Strips were applied. The patient's anesthetic agents were reversed and extubation was completed prior to transfer to recovery in stable condition. Condition: stable Disposition: PACU Specimens:: Gallbladder and contents Complications:: No immediate
--- NOTE | 2021-10-01 12:13 | P.PN_ITS ---
[facility] Anesthesia Record Part I Intake, IV Amount: 700 Estimated blood loss (mL): 10 Urine output (mL): 0 Blood Pressure: 121/73 SaO2: 93 Pulse Rate: 74 Respiratory Rate: 18 Temperature: 97.7 F Patient is:: Drowsy Stable to PACU at:: 12:10
--- NOTE | 2021-10-04 07:10 | HMH.ANESII ---
[facility] Anesthesia Record Part II Discharge Time: 12:40 Destination: Surgical Day Care (OP Surgery) PACU nurse assessment reviewed?: Yes Patient Condition:: Good Anesthesia Complications:: None Swallowing reflex intact?: Yes Cyanosis?: No Blood Pressure: 146/90 Pulse Rate: 77 Temperature: 97.3 F Mental Status: Alert & Oriented Pain level:: 0 Nausea and/or vomitting:: None Intake, IV Amount: 0
[2021-10-04 07:11] VITALS: BP 146/90; PULSE 77; TEMP 36.3
== END 2021-10-01 13:40 | disposition home or self-care (01) ==
LOC: OR 08:40
PROVIDERS: PCP Emergency Medicine; Visit Provider Surgery
PROC: 0FT44ZZ Resection of Gallbladder, Percutaneous Endoscopic Approach (ICD-10-PCS; CPT 47562; principal; 2021-10-01 10:15)
DX: K80.10 Calculus of gallbladder with chronic cholecystitis without obstruction (principal); Z72.0 Tobacco use
CPT/HCPCS: 47562; 81025; 96374; J2405; J2710

== ENCOUNTER 2021-11-11 12:27 | Emergency (ER) | payer BC, SELFPAY ==
--- NOTE | 2021-11-11 13:06 | HMH.EDUTC ---
[facility] Clinical Impression: Strep throat Disposition: Home, Self-Care Condition on Discharge: Good Instructions: Strep Throat, DI for Strep Throat Additional Instructions: Drink plenty of fluids. Take tylenol or ibuprofen for pain or fever. Take the medications as directed. Follow up with your regular doctor. GO TO THE ER FOR ANY WORSENING SYMPTOMS Throw your tooth brush away and get a new one. Prescriptions: Amoxicillin [Amoxicillin 875MG Tab] 875 mg PO Q12H #20 tab Transmission Status: Received by [facility] methylPREDNISolone [Medrol] 4 mg PO DIRECTED 6 Days #21 packet Transmission Status: Received by [facility] Referrals: Nigel Vargas MD [Primary Care Provider] - Time of Disposition: 13:48 Medical Decision Making - Medical Records Medical records reviewed: No: I reviewed the patient's medical records. - Ronny Inquiry Pt receiving controlled substance: No Vital Signs: 11/11/21 13:15 11/11/21 14:07 Temperature 99.2 F 99.2 F Temperature Source Oral Pulse Rate 85 Pulse Rate [Left] 85 Respiratory Rate 16 16 Blood Pressure 132/75 Blood Pressure [Right Arm] 132/75 Blood Pressure Mean [Right Arm] 94 02 Sat by Pulse Oximetry 96 - Lab Data Lab results reviewed: Yes: I reviewed the patient's lab results. Lab Results 11/11/21 13:06: Strep Scn Rapid Clinic Positive [facility] [place] - General Stated complaint: Fever headache congestion Time Seen by Provider: 11/11/21 13:08 - History of Present Illness Provider Complaint: She states that she has had sore throat, chills, fever, and body aches for the past 2 days. - Related Data Home Medications Medication Instructions Recorded Confirmed promethazine 12.5 mg tablet 12.5 mg PO Q6H PRN 10/01/21 Previous Rx's Medication Instructions Recorded Hydrocod/Acet 5/325 mg [[place] 1 - 2 tab PO Q6HP PRN #17 tab 10/01/21 5/325mg tablet] Amoxicillin [Amoxicillin 875MG 875 mg PO Q12H #20 tab 11/11/21 Tab] methylPREDNISolone [Medrol] 4 mg PO DIRECTED 6 Days #21 11/11/21 packet Allergies Allergy/AdvReac Type Severity Reaction Status Date / Time ondansetron Allergy Unknown STATES Verified 11/11/21 13:17 [From ZOFRAN ( MAKES HER HYDROCHLORIDE)] [facility] History - Hepatitis A Screen Attestation statement:: This patient has been screened for Hepatitis A risk factors. I have reviewed the patient's past medical history: Yes Medical History: Denies:: Cancer, Diabetes Mellitus Type 1, Diabetes Mellitus Type 2, Internal Pacemaker, MRSA, Seizures Other Medical History: Denies: Blood Transfusion Reaction Laterality Cases: Right: Lumpectomy Other Surgeries: Yes: Hysterectomy-Partial. No: Pacemaker Amputation: No Fractures: No - Social History Smoking Status: Current every day smoker Tobacco Type: cigarettes # Packs/Day (cigarettes): 1 Alcohol Intake: never Substance Use Type: former substance user, painkillers, methamphetamine, prescription drug, other Occupational Status: unemployed Housing: house Household Members: family Family Hx:: Heart Attack, Stroke ROS Obtained: Yes All systems reviewed & no additional complaints - Constitutional Constitutional: Reports as per HPI - Eyes Eyes: Denies eye discharge - ENT Ears, Nose, Mouth, and Throat: Reports as per HPI - Cardiovascular Cardiovascular: Denies chest pain - Respiratory Respiratory: Reports cough Physical Exam - General General appearance: alert, in no apparent distress - Head Head exam: atraumatic, normocephalic, normal inspection - Eye Eye exam: Present: normal appearance, PERRL, EOMI - ENT ENT exam: Present: mucous membranes moist, normal external ear exam - Expanded ENT Exam TM/Canal exam: Bilateral TM: erythema, bulging Nose exam: Absent: sinus tenderness Nasal speculum exam: Bilateral: normal Mouth exam: Present: normal external inspection, tongue norm
[2021-11-11 13:15] VITALS: BP 132/75; PULSE 85; RESP 16; TEMP 37.3; O2SAT 96; BMI 27.4
[2021-11-11 13:22] LABS: UTC Strep Screen (Rapid) Positive (Negative)
[2021-11-11 14:07] VITALS: BP 132/75; PULSE 85; RESP 16; TEMP 37.3
== END 2021-11-11 14:08 | disposition home or self-care (01) ==
PROVIDERS: Emergency Provider Nurse Practitioner Family; PCP Emergency Medicine
DX: J02.0 Streptococcal pharyngitis (principal); B95.0 Streptococcus, group A, as the cause of diseases classified elsewhere; U07.1 COVID-19; M79.10 Myalgia, unspecified site; Z79.52 Long term (current) use of systemic steroids; Z88.8 Allergy status to other drugs, medicaments and biological substances; Z82.49 Family history of ischemic heart disease and other diseases of the circulatory system
CPT/HCPCS: 87880; 99213; C9803; G0463; U0003; U0005

== ENCOUNTER → 2022-10-11 09:45 | Outpatient (CLI) | payer OTHER, SELFPAY ==
[2022-10-11 18:05] LABS: Basophils % 0.3 % (0.1-2.0); Eosinophils # 0.2 K/mm3 (0.0-0.4); Hematocrit 42.1 % (37.0-47.0); Hemoglobin 13.7 g/dL (12.2-16.2); Lymphocytes # 1.6 K/mm3 (0.7-4.5); Lymphocytes % 26.1 % (10-50); Mean Corpuscular HGB Conc 32.4 g/dL (31.8-35.4); Mean Corpuscular Hemoglobin 29.2 pg (27.0-31.2); Mean Platelet Volume 10.5 fl (7.4-10.4); Monocytes # 0.4 K/mm3 (0.1-1.0); Monocytes % 6.3 % (1.7-9.3); Neutrophils # 3.9 K/mm3 (1.8-7.8); Neutrophils % 64.3 % (37.0-80.0); Platelet Count 264 K/mm3 (142-424); Red Blood Count 4.67 M/mm3 (4.20-5.40); Red Cell Distribution Width 13.1 % (11.5-17.5); White Blood Count 6.1 K/mm3 (4.8-10.8)
[2022-10-11 18:30] LABS: Alanine Aminotransferase 27 U/L (12-78); Albumin Level 4.4 g/dl (3.5-5.0); Albumin/Globulin Ratio 1.4 (1.1-1.8); Alkaline Phosphatase 92 U/L (38-126); Anion Gap 11.4 mEq/L (5-15); Aspartate Amino Transferase 30 U/L (14-36); Bilirubin,Total 0.3 mg/dl (0.2-1.3); Blood Urea Nitrogen 10 mg/dl (7-17); Calcium 8.9 mg/dl (8.4-10.2); Carbon Dioxide 24 mmol/L (22.0-30.0); Chloride 107 mmol/L (98-107); Chol/HDL Ratio 2.6 (1-3.5); Cholesterol 148 mg/dl (140-200); Estimated Glomerular Filt Rate 113 ml/min (>60); GFR (African American) 137 ML/MIN (>60); Globulin 3.1 g/dL (1.3-3.2); Glucose 107 mg/dl (74-100); HDL Cholesterol 56 mg/dl (40-60); Potassium 4.4 mmoL/L (3.5-5.1); Sodium 138 mmol/L (136-145); Total Protein,Serum 7.5 g/dl (6.3-8.2); Triglycerides 73 mg/dl (30-150); VLDL Cholesterol 15 mg/dL (0-40)
[2022-10-11 18:47] LABS: 25-OH Vitamin D, Total 30.6 ng/mL (30-100)
[2022-10-11 19:01] LABS: Thyroid Stimulating Hormone 1.73 uIU/mL (0.465-4.68)
== END ==
PROVIDERS: PCP Nurse Practitioner Family; Visit Provider Nurse Practitioner Family
DX: F41.9 Anxiety disorder, unspecified (principal); E66.9 Obesity, unspecified; Z68.35 Body mass index [BMI] 35.0-35.9, adult
CPT/HCPCS: 80053; 80061; 82306; 84443; 85025

== ENCOUNTER 2023-08-14 16:37 | Emergency (ER) | payer OTHER, SELFPAY ==
[2023-08-14 16:55] VITALS: BP 156/102; PULSE 104; RESP 24; TEMP 37.2; O2SAT 95; BMI 40.3
--- NOTE | 2023-08-14 17:00 | XR_ITS ---
PROCEDURE INFORMATION: Exam: XR Chest Exam date and time: 08/14/2023 4:56 PM Age: 38 years old Clinical indication: Cough; Additional info: Cough/soa. Smoker x 19 yrs TECHNIQUE: Imaging protocol: Radiologic exam of the chest. Views: 2 views. COMPARISON: CT ABDOMEN PELVIS WO CON 09/13/2021 5:23 AM FINDINGS: Lungs: Mild ground-glass density in the lateral left lower lobe. No consolidation. Possible 4 mm nodule in the lateral right lower lung. Pleural spaces: Normal. No pleural effusion. No pneumothorax. Heart/Mediastinum: Normal. No cardiomegaly. Bones/joints: Unremarkable. IMPRESSION: 1. Mild ground-glass density in the left lower lobe could be due to pneumonia. Recommend follow-up imaging after appropriate treatment to ensure resolution and exclude the possibility of neoplastic disease. 2. Possible 4 mm nodule in the lateral right lower lung. Consider follow-up nonemergent chest CT.
[2023-08-14] MEDS: IPRATROPIUM/ALBUTEROL 3 ML NEB IH (17:20)
--- NOTE | 2023-08-14 17:28 | EXP.UTC ---
Discharge Plan Disposition Patient Disposition: Home, Self-Care Condition: Good Prescriptions Prescriptions: New promethazine-DM 6.25-15 mg/5 mL syrup 5 ml PO Q6H PRN (Reason: cough) Qty: 118 0RF albuterol sulfate [Proventil HFA] 90 mcg/actuation HFA aerosol inhaler 2 puff inhalation Q4-6H PRN (Reason: shortness of breath or wheezing) Qty: 8.5 0RF azithromycin [Zithromax Z-Олег] 250 mg tablet See Rx Instructions .ROUTE .COMPLEX 5 Days Qty: 6 0RF Rx Instructions: For 250 mg dose pack: take 500 mg today (day 1), then 250 mg for 4 days (days 2-5) prednisone 20 mg tablet 20 mg PO BID 5 Days Qty: 10 0RF cefdinir 300 mg capsule 300 mg PO BID Qty: 20 0RF guaifenesin [Mucinex] 600 mg tablet extended release 12hr 1,200 mg PO BID PRN (Reason: cough) Qty: 20 0RF No Action omeprazole 20 mg capsule,delayed release(DR/EC) 20 mg PO DAILY Qty: 30 2RF varenicline [Chantix Starting Month Box] 0.5 mg (11)- 1 mg (42) tablets,dose pack See Rx Instructions PO PER PKG DIR Qty: 53 0RF Rx Instructions: PO PER PKG DIR Mounjaro 2.5 mg/0.5 mL pen injector 2.5 mg SQ WEEKLY 28 Days Qty: 2 0RF nicotine [Nicoderm CQ] 21 mg/24 hr patch 24 hour 1 patch transdermal DAILY Qty: 28 1RF Referrals Follow up/Referrals: Fernando Eugene APRN [Primary Care Provider] - See instructions Activity Restrictions/Add. Instructions Additional Instructions/Restrictions: Start azithromycin antibiotic today and Cedinir tomorrow. Be sure to complete entire prescription even if feeling better Monitor temp. Tylenol every 4 hours as needed and / or ibuprofen every 6 hours as needed ( As long as your primary care physician has told you that it ok to take both. For fever/aches/pains ER if no less than 101 despite Tylenol or Motrin Humidifier/vaporizer or hot steamy shower Inhaler every 4-6 hours as needed like we discussed. If unsure how to use it, ask pharmacist to demonstrate how. Should help open airways and improve cough, wheezing, and shortness of breath Mucinex during the day for your cough and cough suppressant only at night. Be sure to drink lots of water. *Promethazine DM cough syrup will cause drowsiness. Use only at night. No driving, operating machinery or caring for small children after taking it *Start steroid tomorrow Helps with inflammation therefore, cough and wheezing. Follow directions on the package. Reviewed side effects. Patient reports taking them before. Make sure to make appointment with your Family Doctor as dicussed for follow up xray and CT as recommended Follow up IMMEDIATELY for new or worsening of symptoms OR no noticeable improvement over the next 48-72 hours. 911 immediately for any life threatening symptoms such as chest pain or difficulty breathing Clinical Impressions Clinical Impression: Pneumonia Qualifiers: Pneumonia type: due to unspecified organism Laterality: left Lung location: lower lobe of lung Qualified Code(s): J18.9 - Pneumonia, unspecified organism Instructions Patient Instructions: Pneumonia-Adult, Azithromycin, Cefdinir Discharge ED Provider: Manuela Montemayor [facility] HPI General Stated complaint: cough, shanae, painful breathing Mode of Arrival: Ambulatory Source of Information: Patient Limitations: No Limitations Time Seen by Provider: 08/14/23 17:28 Description of Symptoms (Recalled from Triage Doc. by RN): PATIENT C/O COUGH, SOA, RIBS HURTING AND LOSS OF VOICE X 3 DAYS HEENT Symptoms (Recalled from RN notes): Yes Resp Symptoms (Recalled from RN notes): Yes Skin Symptoms (Recalled from RN notes): No MS Symptoms (Recalled from RN notes): Yes Functional Status (Recalled from RN notes): WNL History of Present Illness Provider Complaint: Patient state that she has been having cough, chest congestion, sinus pressure and loss of voice States that she isnt coughing anything up much but is sore from all the coughing and earlier she felt wheezy and a little SOA after coughing episode so she came in to get checked Related Data Previous Rx's Medication Instructions Recorded nicotine 21 mg/24 hr daily 1 patch transdermal DAILY #28 ea 10/11/22 transdermal patch (Nicoderm CQ) omeprazole 20 mg capsule,delayed 20 mg PO DAILY #30 caps 05/01/23 release tirzepatide 2.5 mg/0.5 mL 2.5 mg (0.5 mL) SQ WEEKLY 4 weeks 05/01/23 subcutaneous pen injector #2 mL (Mounventuraro) varenicline 0.5 mg (11)-1 mg (42) See Rx Instructions PO PER PKG DIR 05/01/23 tablets in a dose pack (Chantix #53 tabs Starting Month Box) albuterol sulfate 90 mcg/actuation 2 puff inhalation Q4-6H PRN 08/14/23 aerosol inhaler (Proventil HFA) shortness of breath or wheezing #8.5 grams azithromycin 250 mg tablet See Rx Instructions PO .COMPLEX 5 08/14/23 (Zithromax Z-Олег) days #6 tabs cefdinir 300 mg capsule 300 mg PO BID #20 caps 08/14/23 guaifenesin 600 mg tablet, 1,200 mg (2 x 600 mg) PO BID PRN 08/14/23 extended release 12 hr (Mucinex) cough #20 tabs prednisone 20 mg tablet 20 mg PO BID 5 days #10 tabs 08/14/23 promethazine-DM 6.25 mg-15 mg/5 mL 5 ml PO Q6H PRN cough #118 mL 08/14/23 oral syrup Allergies Allergy/AdvReac Type Severity Reaction Status Date / Time ondansetron Allergy Unknown STATES Verified 05/01/23 11:23 [From ZOFRAN ( MAKES HER HYDROCHLORIDE)] SICK Worker's Comp Is this a Worker's Comp case?: No [facility] Disclaimer: The information contained in this section may have been updated after the patient was seen, as this information can be updated by other users. Medical History (Updated 08/14/23 @ 17:49 by Manuela Montemayor APRN) Urinary tract infection Hypertension Exposure to COVID-19 virus Bronchitis Strep sore throat Surgical History (Updated 08/14/23 @ 17:02 by Ivelisse Barton RN) H/O tubal ligation History of hysterectomy History of cholecystectomy Social History Smoking Status: Current every day smoker tobacco type: cigarettes packs per day: 1 second hand exposure: Yes alcohol intake: never substance use type: former substance user, painkillers, methamphetamine, prescription drug and other current occupational status: unemployed Travel in the last 8 weeks: None household members: family housing: house current occupational exposures/hazards: No caffeine: Yes ROS Obtained: Yes All systems reviewed & no additional complaints except as documented and Yes Systems reviewed as appropriate & no additional complaints except as documented Constitutional Constitutional: Reports system reviewed and no additional complaints, except as documented and Reports as per HPI ENT Ears, Nose, Mouth, and Throat: Reports system reviewed and no additional complaints, except as documented, Reports as per HPI, Reports sinus pain and Reports sinus pressure Cardiovascular Cardiovascular: Reports system reviewed and no additional complaints, except as documented and Reports as per HPI Respiratory Respiratory: Reports system reviewed and no additional complaints, except as documented, Reports as per HPI, Reports shortness of breath, Reports chest congestion, Reports cough and Reports pain with cough (at times) Gastrointestinal Gastrointestingal: Reports system reviewed and no additional complaints, except as documented and as per HPI Musculoskeletal Musculoskeletal: Reports system reviewed and no additional complaints, except as documented and Reports as per HPI Physical Exam General General appearance: alert and in no apparent distress ENT ENT exam: Present mucous membranes moist Expanded ENT Exam Nose exam: Present sinus tenderness Throat exam: Present other (Pharyngeal erythema noted with PND) Respiratory Respiratory exam: Present normal lung sounds bilaterally and wheezes; Absent respiratory distress Cardiovascular Cardiovascular exam: Present regular rate, normal rhythm and tachycardia Neurological Exam Neurological exam: Present alert, oriented X3 and normal gait Medical Decision Making Ronny Inquiry Pt receiving controlled substance: No Ronny was queried for this patient: No Vital Signs: 08/14/23 16:55 Temperature 98.9 F Temperature Source Oral Pulse Rate [Left Brachial] 104 H Respiratory Rate 24 Blood Pressure [Left Arm] 156/102 H Blood Pressure Mean [Left Arm] 120 Blood Pressure Source [Left Arm] Automatic Cuff Blood Pressure Position [Left Arm] Sitting 02 Sat by Pulse Oximetry 95 Oxygen Delivery Method Room Air Orders (Tests/Meds): ED MEDICATIONS Generic Name Dose Route Start Last Admin Trade Name Freq PRN Reason Stop Dose Admin Albuterol/Ipratropium 3 ml 08/14/23 17:14 Ipratropium/Albuterol 3 Ml Neb IH 08/14/23 17:15 ONCE ONE ORDERS Category Date Time Status Chest XR 2 view (NOT portable) [XR chest 2V] Stat Exams 08/14/23 17:00 Taken Radiology Data #1: Image(s): Chest Image Reviewed: Yes I have reviewed radiologist's interpretation IMPRESSION: 1. Mild ground-glass density in the left lower lobe could be due to pneumonia. Recommend follow-up imaging after appropriate treatment to ensure resolution and exclude the possibility of neoplastic disease. 2. Possible 4 mm nodule in the lateral right lower lung. Consider follow-up nonemergent chest CT.
[2023-08-14] MEDS: METHYLPREDNISOLONE SOD SUCC 125MG VIAL 125 MG IM (18:00)
[2023-08-14] MEDS: cefTRIAXone 1GM VIAL 1 GM IM (18:00)
[2023-08-14] MEDS: LIDOCAINE 1% 5ML PF VIAL IM (18:00)
[2023-08-14 18:04] VITALS: BP 156/102; PULSE 104; RESP 24; TEMP 37.2; O2SAT 95
== END 2023-08-14 18:18 | disposition home or self-care (01) ==
PROVIDERS: Emergency Provider Nurse Practitioner; PCP Nurse Practitioner Family
DX: J18.9 Pneumonia, unspecified organism (principal); R07.1 Chest pain on breathing; R06.02 Shortness of breath; R05.9 Cough, unspecified; R09.81 Nasal congestion; F17.210 Nicotine dependence, cigarettes, uncomplicated
CPT/HCPCS: 71046; 96372; 99212; 99214; G0463; J0696

== ENCOUNTER 2023-09-26 10:52 | Outpatient (CLI) | payer OTHER, SELFPAY ==
--- NOTE | 2023-09-26 10:53 | CT_ITS ---
FINAL REPORT TECHNIQUE: Axial images were obtained from the lung apex to the mid abdomen by computed tomography. Coronal reformatted images were obtained. This study was performed with techniques to keep radiation doses as low as reasonably achievable, (ALARA). Individualized dose reduction techniques using automated exposure control or adjustment of mA and/or kV according to the patient''s size were employed. CLINICAL HISTORY: 4mm nodule RLL COMPARISON: None FINDINGS: No mediastinal mass or adenopathy is identified. No axillary mass or adenopathy is seen.There is no pericardial or pleural effusion. There is a 4 mm calcified granuloma in the right lower lobe. No pulmonary mass or suspicious nodule is identified. Mild scarring is noted at the lung bases. There is mild emphysema. No localized pulmonary inflammatory process is noted. The chest wall is intact. Limited images of the upper abdomen demonstrate small bilateral renal stones. The patient is status post cholecystectomy. IMPRESSION: No pulmonary mass or suspicious nodule. Bilateral renal stones. Reviewed, Interpreted and Dictated by Yohannes Torre III, MD Transcribed by Sharri Michael Authenticated and . [facility]
== END 2023-09-26 23:59 | disposition home or self-care (01) ==
LOC: RAD 10:53
PROVIDERS: PCP Nurse Practitioner Family; Visit Provider Nurse Practitioner Family
DX: R91.1 Solitary pulmonary nodule (principal)
CPT/HCPCS: 71250

== ENCOUNTER 2023-10-11 08:46 | Outpatient (CLI) | payer OTHER, SELFPAY ==
[2023-10-11 18:40] LABS: Basophils % 0.4 % (0.1-2.0); Eosinophils # 0.2 K/mm3 (0.0-0.4); Eosinophils % 2.5 % (0.1-12.0); Hematocrit 41.8 % (37.0-47.0); Hemoglobin 13.9 g/dL (12.2-16.2); Mean Corpuscular HGB Conc 33.3 g/dL (31.8-35.4); Mean Corpuscular Hemoglobin 29.7 pg (27.0-31.2); Mean Corpuscular Volume 89.3 fl (81-99); Mean Platelet Volume 10.5 fl (7.4-10.4); Monocytes # 0.5 K/mm3 (0.1-1.0); Monocytes % 6.4 % (1.7-9.3); Neutrophils # 4.7 K/mm3 (1.8-7.8); Neutrophils % 63.7 % (37.0-80.0); Platelet Count 230 K/mm3 (142-424); Red Blood Count 4.68 M/mm3 (4.20-5.40); Red Cell Distribution Width 14.7 % (11.5-17.5); White Blood Count 7.4 K/mm3 (4.8-10.8)
[2023-10-11 19:26] LABS: Alanine Aminotransferase 32 U/L (12-78); Albumin Level 4.4 g/dl (3.5-5.0); Albumin/Globulin Ratio 1.3 (1.1-1.8); Alkaline Phosphatase 81 U/L (38-126); Aspartate Amino Transferase 30 U/L (14-36); Bilirubin,Total 0.5 mg/dl (0.2-1.3); Blood Urea Nitrogen 10 mg/dl (7-17); Calcium 9.7 mg/dl (8.4-10.2); Carbon Dioxide 25 mmol/L (22.0-30.0); Chloride 106 mmol/L (98-107); Chol/HDL Ratio 3.4 (1-3.5); Cholesterol 159 mg/dl (140-200); Estimated Glomerular Filt Rate 139 ml/min (>60); GFR (African American) 168 ML/MIN (>60); Globulin 3.3 g/dL (1.3-3.2); Glucose 103 mg/dl (74-100); HDL Cholesterol 47 mg/dl (40-60); Sodium 139 mmol/L (136-145); Total Protein,Serum 7.7 g/dl (6.3-8.2); Triglycerides 165 mg/dl (30-150); VLDL Cholesterol 33 mg/dL (0-40)
[2023-10-11 19:37] LABS: Direct LDL Cholesterol 64.57 mg/dL (100-129)
[2023-10-11 19:43] LABS: 25-OH Vitamin D, Total 37.4 ng/mL (30-100)
[2023-10-11 19:55] LABS: Thyroid Stimulating Hormone 1.27 uIU/mL (0.465-4.68)
== END 2023-10-11 23:59 | disposition home or self-care (01) ==
LOC: LAB.DROPOF 10-13 08:46
PROVIDERS: PCP Nurse Practitioner Family; Visit Provider Nurse Practitioner Family
DX: R40.0 Somnolence (principal); E66.01 Morbid (severe) obesity due to excess calories; Z68.35 Body mass index [BMI] 35.0-35.9, adult
CPT/HCPCS: 80050; 80053; 80061; 82306; 84443; 85025

== ENCOUNTER 2023-10-25 06:55 | Outpatient (CLI) | payer OTHER, SELFPAY ==
--- NOTE | 2023-10-25 06:58 | NM_ITS ---
APPROVED REPORT Exam: Nuclear Stress Test Indication: Chest pain, SOB, Palpitations, HTN, Tobacco use, Family history Patient Location: Outpatient Stress Tech: Jennie Bolton DC Tech:Clara Azar, ARRT, RT (R)(N) Ht: 5 ft 6 in Wt: 240 lbs Bra Size: 38C HR: 65 bpm BP: 108/64 mmHg BSA: 2.16 m2 TID: 1.24 BMI: 38.7 History: Chest pain, SOB, Palpitations, HTN, Tobacco use, Family history Procedure: Patient received 0.4 mg of intravenous Lexiscan, resting heart rate 65 bpm, resting blood pressure 108/64 mmHg, with Lexiscan maximum heart rate achieved was 99 bpm which is % of the maximum predicted heart rate and blood pressure was 128/70 mmHg. With Lexiscan, patient denied any complaint of chest pain. Cardiac Stress and Resting SPECT Images: Cardiac Stress and Resting SPECT images were obtained using technetium 99m Myoview 31.4 mCi stress and 10.77 mCi at rest. Technically difficult study due to significant radiotracer GI uptake in close proximity to the inferior border of the LV wall. These may affect the diagnostic interpretation of the study findings. Resting and stress imaging in supine and prone positions demonstrate no evidence of fixed or reversible perfusion defects. There is increase in transient ischemic dilatation ratio (TID 1.24), suggestive of possible multivessel disease or balanced ischemia. Gated imaging demonstrates normal global and regional LV systolic function. LVEF is calculated at 55%. Conclusion: No evidence of fixed or reversible perfusion defects. There is increase in transient ischemic dilatation ratio (TID 1.24), suggestive of possible multivessel disease or balanced ischemia. Gated imaging demonstrates normal global and regional LV systolic function. LVEF is calculated at 55%. In the setting of young age, technically difficult study, and presence of TID on nuclear stress testing, further evaluation noninvasively with CCTA to rule out multivessel disease is suggested prior to proceeding with invasive coronary angiography. Electronically signed by : Ama Flowers MD 10/25/2023 11:55:34
--- NOTE | 2023-10-25 09:46 | CA_ITS ---
APPROVED REPORT Exam: Pharmacologic Technologist: Jennie Gomez, Ht: 5 ft 6 in Wt: 237 lbs BSA: 2.15 m2 HR: 79 bpm BP: 108/64 mmHg Rhythm: NSR Medical History Medications: Omeprazole,,,,, Aspirin,,,,, Nicotine,,,,, Albuterol,,,,, BisOPROLOL Fumarate,,,,, Meclizine,,,,, Nitroglycerin,,,,, Stress Test Details Test: LEXISCAN Reason for pharmacologic stress test: changed from exercise stress test due to inability to reach target heart rate. HR Resting HR: 65 bpm Max Heart Rate (APMHR): 183 bpm Max HR Achieved: 99 bpm Target HR (85% APMHR): 156 bpm % of APMHR: 54 Recovery HR: 70 bpm BP Resting BP: 108.0/64.0 mmHg Max BP: 128.0/70.0 mmHg Recovery BP: 115.0/62.0 mmHg ECG Resting ECG: NSR Stress ECG: No significant ST changes Arrhythmia: None Clinical Exercise duration: 04:00 min Highest Stage Achieved: Stress ECG Conclusion Symptoms: Mild SOA, head discomfort. No CP. Arrhythmias/Ectopy: None ST-T Changes: No significant ST changes. Conclusion: Unremarkable Lexiscan stress. Myoview images reported separately. Test Summary REST . . . . . . . Resting REST 03:38 . . 65 . 108/ 64 . . Stage 1 01:00 . . 92 . . . . Stage 2 01:00 . . 97 . . . . Stage 3 01:00 . . 94 . 123/ 64 . . Stage 4 01:00 . . 90 . 117/ 60 . Stop exercise at 04:00 RECOVERY 01:00 . . 86 . . . . RECOVERY 02:00 . . 82 . . . . RECOVERY 03:00 . . 81 . 115/ 62 . . RECOVERY 03:15 . . 78 . 115/ 62 . . Electronically signed by : Ama Flowers MD 10/25/2023 11:53:19
== END 2023-10-25 23:59 | disposition home or self-care (01) ==
LOC: RAD 06:56
PROVIDERS: PCP Nurse Practitioner Family; Visit Provider Physician Assistant
DX: R06.02 Shortness of breath (principal); R07.9 Chest pain, unspecified; R42 Dizziness and giddiness; R60.0 Localized edema; R53.83 Other fatigue
CPT/HCPCS: 78452; 93017; 93018; A9502; J2785

== ENCOUNTER 2023-11-23 07:27 | Outpatient (CLI) | payer OTHER, SELFPAY ==
--- NOTE | 2023-11-23 07:28 | CT_ITS ---
APPROVED REPORT Boot Maker: CLINICAL INDICATION Chest Pain TECHNIQUE Image Acquisition: A 128 slice MDCT scanner ([employer]achi sfilatinoa View) was used for data acquisition. A noncontrast coronary calcium scan was performed. A CT attenuation threshold of 130 Hounsfield units (HU) was used for the detection of calcium in contiguous voxels of 1 sq mm in area to be counted as individual lesions. Bolus tracking in the ascending aorta with a threshold of 180 HU was performed. Immediately afterwards, ECG synchronized cardiac CT was then performed from the cardiac base to apex using retrospective gating with ECG tube current modulation. A total of 85 mL of Isovue 370 mg/mL contrast medium was administered at 5 mL/sec followed by a saline flush using a biphasic injection protocol. A tube voltage of 120 KVp was used. The patient received the following medications prior to the cardiac CT. 0.8 mg of sublingual nitroglycerin The average heart rate at the time of acquisition was 48 bpm and regular. Image Reconstruction Transaxial images were reconstructed at 0.67 mm slide thickness. Data was reviewed interactively on an advanced workstation capable of 2 and 3-dimensional displays in all conventional reconstruction formats, including multiplanar reformations, maximum intensity projections, curved multiplanar reformations, and volume rendered reconstructions. When applicable, selected routine images describing the relevant coronary anatomy and pathology were saved and sent to PACS. Complications None Technical Quality Overall image quality was good. Coronary artery opacification was adequate. Total DLP (Dose-Length Product) is 1235.9 mGy-cm. The reported value represents the total of one or more individual components during the CT acquisition of this date and at this time, and as such, the same value may appear in more than one CT report depending on the interpreting/reporting physicians. COMPARISON None FINDINGS CT Coronary Calcium Scoring LMA (Left Main Artery) = 0 LAD (Left Anterior Descending) = 0 LCX (Left Coronary Circumflex) = 0 RCA (Right Coronary Artery) = 0 Total Calcium Score = 0 using the AJ-130 method. The interpretation of the calcium heart score is based on the following continuum*: 0 = no calcified plaque detected (risk of coronary artery disease is very low ??? less than 5%) 1-10 = calcium detected in extremely minimal levels (risk of coronary diseases is still low ??? less than 10%) 11-100 = mild levels of plaque detected with certainty (mild or minimal narrowing of heart arteries is likely) 101-400 = definite,at least moderate levels of plaque detected (relatively high risk of a heart attack within 3-5 years) >401-999 = extensive levels of plaque detected (high risk of heart attack, high levels of vascular disease are present, high likelihood of at least one significant coronary narrowing) *The calcium heart score quantifies the burden of coronary calcification/plaque in the coronary arteries. The calcium heart score is not able to evaluate the presence or burden of non-calcified (i.e. soft) plaque. There is no identifiable calcification in the aortic valve, mitral annulus or mitral valve, pericardium, or myocardium. Coronary CT Angiography The coronary arterial system is right dominant. Quantitative Stenosis Grading: Left Main (LM): The left main originates normally from the left sinus of Valsalva. The LM trifurcates into the left anterior descending artery, ramus intermedius, and left circumflex artery. The LM is patent with no evidence of atherosclerosis. Left Anterior Descending (LAD) and Diagonal Branches: The LAD gives off 3 diagonal branch(es). The LAD and its branches are patent with no evidence of atherosclerosis. There is no evidence of LAD-myocardial bridge. Ramus-intermedius (RI): The RI is patent. Left Circumflex (LCX) and Obtuse Marginals (OM): The LCX gives off 2 Obtuse Marginal (OM) branch(es). The LCX and its branches are patent with no evidence of atherosclerosis. Right Coronary Artery (RCA): The RCA originates normally from the right sinus of Valsalva. The RCA gives off a posterior descending artery (PDA) and posterolateral (PL) branches. The RCA and its branches are patent with no evidence of atherosclerosis. Non-Coronary Cardiac Findings: Analysis of the left ventricular (LV) structure and function was performed after 3-D reconstruction of the LV from axial images, with user-corrected automatic contouring for assessment of LV volumes and user-defined reconstruction from oblique planes for measurement of 3-D cardiac structure and function. -The left ventricle systolic function is normal. -There is no left atrial appendage filling defect. Two right pulmonary veins and two left pulmonary veins drain normally into the left atrium. -No pericardial thickening or calcification. -Central and branch pulmonary arteries in the [id number] are unremarkable. -Thoracic aorta within the visualized thoracic aortic-branches in the [id number] is unremarkable. Extracardiac Structures No significant extra-cardiac findings. Note, however, that this study is focused on the cardiac findings. IMPRESSION -No coronary calcification with an Agatston score = 0 using the AJ-130 method. -No evidence of significant flow-limiting atherosclerosis of the coronary arteries. -No evidence of coronary anomalies or myocardial bridges. -CAD-RADS 0. Management recommendations per ACC/AHA guidelines*, as clinically appropriate. *Recommendations: CAD RADS 0: Reassurance. Consider non-atherosclerotic causes of chest pain. CAD RADS 1: Consider non-atherosclerotic causes of chest pain. Consider preventive therapy and risk factor modification. CAD RADS 2: Consider non-atherosclerotic causes of chest pain. Consider preventive therapy and risk factor modification, particularly for patients with nonobstructive plaque in multiple segments. CAD RADS 3: Consider further functional testing. Consider symptom-guided anti-ischemic and preventive pharmacotherapy as well as risk factor modification per published guideline statements. CAD RADS 4A: Consider further functional testing or invasive coronary angiography with revascularization per published guideline statements. Consider symptom-guided anti-ischemic and preventive pharmacotherapy as well as risk factor modification per published guideline statements. CAD RADS 4B: Invasive coronary angiography recommended with revascularization per published guideline statements. Consider symptom-guided anti-ischemic and preventive pharmacotherapy as well as risk factor modification per published guideline statements. CAD RADS 5: Consider invasive angiography and/or viability assessment with revascularization per published guideline statements. Consider symptom-guided anti-ischemic and preventive pharmacotherapy as well as risk factor modification per published guideline statements. CRITICAL RESULT None COMMUNICATION Per this written report The coronary and cardiac findings of this CCTA were reviewed, reported, and signed by Thai Flowers MD (Drum Sealer) Conclusion Electronically signed by : Ama Flowers MD 11/23/2023 16:15:00
[2023-11-23 07:40] VITALS: BMI 38.2
[2023-11-23] MEDS: METOPROLOL TARTRATE 50MG TABLET 50 MG (07:45)
[2023-11-23] MEDS: IVABRADINE HCL 7.5MG TABLET 15 MG PO (07:45)
[2023-11-23 08:01] VITALS: BP 129/72; PULSE 68; RESP 18; TEMP 36.3; O2SAT 99
[2023-11-23 08:11] LABS: Chloride 108 mmol/L (98-107); Potassium 3.7 mmoL/L (3.5-5.1); Sodium 139 mmol/L (136-145)
[2023-11-23 08:13] LABS: HCG Qualitative, Serum Negative (Negative)
[2023-11-23 08:14] LABS: Anion Gap 7.7 mEq/L (5-15); Blood Urea Nitrogen 9 mg/dl (7-17); Calcium 8.4 mg/dl (8.4-10.2); Carbon Dioxide 27 mmol/L (22.0-30.0); Creatinine Clearance Estimated 187 mL/min (50-200); Estimated Glomerular Filt Rate 94 ml/min (>60); GFR (African American) 114 ML/MIN (>60); Glucose 90 mg/dl (74-100)
[2023-11-23 08:40] VITALS: BP 122/76; PULSE 60; RESP 18; O2SAT 98
[2023-11-23] MEDS: NITROGLYCERIN 0.4MG SL TABLET SL (08:40)
[2023-11-23 08:45] VITALS: BP 124/60; PULSE 58; RESP 18; O2SAT 98
[2023-11-23 08:50] VITALS: BP 109/64; PULSE 56; RESP 18; O2SAT 97
[2023-11-23 08:55] VITALS: BP 125/72; PULSE 52; RESP 18; O2SAT 98
[2023-11-23] MEDS: 0.9 % SODIUM CHLORIDE 50 ML VIAL IV (09:10)
[2023-11-23] MEDS: IOPAMIDOL-370 (76%);100ML BOTTLE 85 ML IV (09:10)
[2023-11-23] MEDS: SODIUM CHLORIDE 0.9% 10ML SYR (RAD ONLY) 10 ML IV (09:10)
== END 2023-11-23 08:55 | disposition home or self-care (01) ==
PROVIDERS: PCP Nurse Practitioner Family; Visit Provider Physician Assistant
DX: I20.9 Angina pectoris, unspecified (principal); R06.00 Dyspnea, unspecified; R93.1 Abnormal findings on diagnostic imaging of heart and coronary circulation; R60.0 Localized edema; R42 Dizziness and giddiness; R53.83 Other fatigue; G47.33 Obstructive sleep apnea (adult) (pediatric); Z72.0 Tobacco use; Z82.49 Family history of ischemic heart disease and other diseases of the circulatory system
CPT/HCPCS: 75574; 80048; 84703; Q9967

== ENCOUNTER 2023-12-01 12:47 | Outpatient (CLI) | payer OTHER, SELFPAY ==
--- NOTE | 2023-12-01 12:48 | CA_ITS ---
APPROVED REPORT EXAM: Comprehensive 2D, Doppler, and color-flow Echocardiogram Mailing Specialist: Hodan Anaya RVT Ht: 5 ft 6 in Wt: 241lbs BSA: 2.16 BP: 163/66 mmHg Indications: ABN GXT,CP,SOA,NEAR SYNCOPE,HTN,EDEMA,COPD,HTN,ALEK 2D Dimensions LA Volume 66.60 mL LA Volume Index 30.69 mL/m2 (M/F) 16-34 M-Mode Dimensions RVDd 3.57 cm (0.9-2.6) LA Diam 3.92 cm (1.9-4.0) LVDd 4.88 cm (3.5-5.7) LVDs 3.27 cm (3.5-5.7) IVSd 0.81 cm (0.6-1.1) PWd 0.42 cm (0.6-1.1) EF (Teich) 61.30% FS 33.00% EDV (Teich) 111.70 mL TAPSE 2.73 (<1.7) ESV (Teich) 43.20 mL LV Diastology E Decel Time 250 (160-240 msec) E/A Ratio 1.1 Aortic Valve LUH Index 1.54 cm2/m2 AoV Peak Jaylan. 167.0 (50-130 cm/s) AO Peak GR. 11.20 mmHg AO Mean GR. 5.10 (<5 mmHg) AO VTI 33.8 (18-25 cm) LUH (VTI) 3.41 (2.5-4.5 cm2) Mitral Valve MV E Max Jaylan. 97.0 (40-130 cm/s) MV A Velocity 92.0 (40-130 cm/s) E/A Ratio 1.05 MV PHT 73.0 ms Pulmonary Valve PV Peak Velocity 96.0 (50-150 cm/s) Tricuspid Valve TR P. Velocity 260.00 cm/s RAP Estimate 10.00 mmHg RVSP 37.10 mmHg Left Ventricle The left ventricle is normal size. The left ventricular systolic function is normal. The left ventricular ejection fraction is within the normal range. There is normal left ventricular wall thickness. There is normal LV segmental wall motion. The left ventricular diastolic function is normal. LVEF is 55%. Right Ventricle The right ventricle is normal size. The right ventricular systolic function is normal. Atria The left atrium size is normal. The right atrium size is normal. There is no Doppler evidence of interatrial shunt. Aortic Valve The aortic valve opens well. There is no aortic valvular stenosis. No aortic regurgitation. Mitral Valve The mitral valve is normal in structure. No evidence of mitral valve stenosis. Trace mitral regurgitation. Tricuspid Valve Tricuspid valve is grossly normal in structure and function. Mild tricuspid regurgitation. RVSP is 20-25 mmHg. Pulmonic Valve The pulmonary valve is normal in structure. Trace pulmonic regurgitation. Great Vessels The aortic root is normal in size. The ascending aorta is not well visualized. IVC is normal in size and collapses >50% with inspiration. Pericardium There is no pericardial effusion. Other Information Study Quality: Adequate Conclusion Normal biventricular systolic function. Mild TR. Electronically signed by : Ama Flowers MD 12/10/2023 11:40:30
== END 2023-12-01 23:59 | disposition home or self-care (01) ==
LOC: RT 12:48
PROVIDERS: PCP Nurse Practitioner Family; Visit Provider Physician Assistant
DX: R06.02 Shortness of breath (principal); R93.1 Abnormal findings on diagnostic imaging of heart and coronary circulation; R53.83 Other fatigue; R07.9 Chest pain, unspecified; R60.0 Localized edema; R42 Dizziness and giddiness; R55 Syncope and collapse; Z82.49 Family history of ischemic heart disease and other diseases of the circulatory system
CPT/HCPCS: 93306

== ENCOUNTER 2023-12-29 09:25 | Day surgery (SDC) | payer OTHER, SELFPAY ==
[2023-12-29 06:51] VITALS: BMI 39.4
[2023-12-29 09:45] VITALS: BP 135/79; PULSE 70; RESP 18; TEMP 36.4; O2SAT 96
--- NOTE | 2023-12-29 11:13 | EXP.TILT ---
Findings:: PROCEDURE: Tilt Table Test REQUESTING PROVIDER: Cassy Gonzalez MD INDICATION: Dizziness and syncope BETA BLOCKERS: Bisoprolol was held for 48 hours prior to testing PRE-TEST VITAL SIGNS (supine position): HR 66 and sinus rhythm, BP 138/77, O2Sats 99% PROCEDURE SUMMARY: Patient was prepped per protocol, IV started, connected to heart, blood pressure and oxygen saturation monitors and safety straps applied. She was then tilted upright at 70 degrees for a total of 30 minutes. During her time upright she denied any symptoms. She specifically denied any dizziness, lightheadedness, or near syncope. When she was returned to the supine position at the end of the test, she reported briefly feeling very mildly lightheaded. Her blood pressure was stable throughout the test with only mild fluctuations. The maximum BP was 146/84, occurring immediately after being raised upright. Systolic BP was in the 130s and 140s and diastolic BP in the 70s and 80s throughout the test, except for one reading of 121/82, occurring after 25 minutes upright. This brief drop in BP was not associated with any patient symptoms and the next BP reading (5 minutes later) was 137/86. Her heart rate was in the 70s and 80s throughout her time upright and she remained in a normal sinus rhythm. Oxygen saturations stayed in the high 90s. CONCLUSIONS: Asymptomatic, unremarkable tilt table test.
== END 2023-12-29 11:13 | disposition home or self-care (01) ==
PROVIDERS: PCP Nurse Practitioner Family; Visit Provider Internal Medicine
DX: R55 Syncope and collapse (principal); R42 Dizziness and giddiness
CPT/HCPCS: 93225; 93227; 93660

== ENCOUNTER 2024-01-05 13:49 | Outpatient (CLI) | payer OTHER, SELFPAY ==
--- NOTE | 2024-01-05 13:49 | MR_ITS ---
FINAL REPORT CLINICAL HISTORY: Encephalopathy COMPARISON: None FINDINGS: Multiplanar MR imaging of the brain was performed without and with contrast. There is no evidence of intracranial hemorrhage or mass. No abnormal extra-axial fluid collection is seen. The ventricular size is within normal limits. There is no evidence of shift of the midline structures. The posterior fossa and brainstem have an unremarkable appearance. No area of abnormal restricted diffusion is identified. No abnormal contrast enhancement is seen. Normal major vessel vascular flow voids are noted. Note is made of a left parietal developmental venous anomaly. IMPRESSION: No acute intracranial abnormality identified. Reviewed, Interpreted and Dictated by Yohannes Torre III, MD Transcribed by Savanna Camacho Authenticated and [facility]
[2024-01-05] MEDS: GADOTERIDOL INJ 10ML SYRINGE 2 ML IV (14:31)
[2024-01-05] MEDS: GADOTERIDOL INJ 20ML SYRINGE 20 ML IV (14:32)
[2024-01-05] MEDS: SODIUM CHLORIDE 0.9% 10ML SYR (RAD ONLY) 10 ML IV (14:32)
== END 2024-01-05 23:59 | disposition home or self-care (01) ==
LOC: RAD 13:49
PROVIDERS: PCP Nurse Practitioner Family; Visit Provider Specialist
DX: R55 Syncope and collapse (principal); R07.9 Chest pain, unspecified; R06.02 Shortness of breath; R53.83 Other fatigue; G93.40 Encephalopathy, unspecified; R44.3 Hallucinations, unspecified
CPT/HCPCS: 70553; A9576

== ENCOUNTER → 2024-01-16 20:28 | Outpatient (CLI) | payer OTHER, SELFPAY | LOC: SL 20:31 | PROVIDERS: PCP Nurse Practitioner Family; Visit Provider Specialist | DX: G47.30 Sleep apnea, unspecified (principal); R06.83 Snoring; R53.83 Other fatigue; G93.49 Other encephalopathy; R51.9 Headache, unspecified; R44.0 Auditory hallucinations | CPT/HCPCS: 95810 ==

== ENCOUNTER 2024-05-06 12:05 | Outpatient (CLI) | payer OTHER, SELFPAY ==
[2024-05-06 15:01] LABS: Coronavirus 19, PCR Not Detected (NotDetected); Influenza A, PCR Not Detected (NotDetected); Influenza B, PCR Not Detected (NotDetected); Respiratory Syncytial Virus Not Detected (NotDetected)
[2024-05-06 23:34] LABS: Human Rhinovirus Detected (NotDetected)
== END 2024-05-06 23:59 | disposition home or self-care (01) ==
LOC: LAB.DROPOF 05-07 09:35
PROVIDERS: PCP Nurse Practitioner Family; Visit Provider Nurse Practitioner
DX: R50.9 Fever, unspecified (principal); B34.8 Other viral infections of unspecified site
CPT/HCPCS: 87631

== ENCOUNTER 2024-11-13 09:30 | Outpatient (CLI) | payer OTHER, SELFPAY ==
[2024-11-13 15:45] LABS: Coronavirus 19, PCR Not Detected (NotDetected); Influenza A, PCR Not Detected (NotDetected); Influenza B, PCR Not Detected (NotDetected)
== END 2024-11-13 23:59 | disposition home or self-care (01) ==
LOC: LAB.DROPOF 11-14 14:35
PROVIDERS: PCP Nurse Practitioner Family; Visit Provider Nurse Practitioner Family
DX: J06.9 Acute upper respiratory infection, unspecified (principal)
CPT/HCPCS: 87631